=== PATIENT | female | born 1985 | race Caucasian/White ===

== ENCOUNTER 2017-05-15 17:07 | Emergency (ER) | payer SELFPAY ==
[~2017-05-15] VITALS: Ht 170.2 cm; Wt 115.0 kg
[2017-05-15 17:17] VITALS: BP 156/90; PULSE 113; RESP 18; TEMP 98.8; O2SAT 92
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
[2017-05-15] MEDS ORDERED: SODIUM CHLOR 0.9% 1000 ML INJ 1,000 ML IV SCH ×2 (18:34→20:13)
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
[2017-05-15 18:39] VITALS: BP 156/81; PULSE 113; RESP 16; O2SAT 100
[2017-05-15] MEDS ORDERED: LANTUS2P SQ (18:50)
[2017-05-15] MEDS ORDERED: GABA400C5 PO (18:50)
[2017-05-15] MEDS ORDERED: HUMALOG SQ (18:50)
--- NOTE | 2017-05-15 18:59 | RADRPT ---
EXAM DATE/TIME: 05/15/2017 18:15 [facility] COMPARISON: No previous studies available for comparison. INDICATIONS : Chest pain after fall. MEDICAL HISTORY : None. SURGICAL HISTORY : None. ENCOUNTER: Initial ACUITY: 1 day PAIN SCORE: 10/10 LOCATION: middle chest. FINDINGS: The examination is performed in expiration. There is crowding of the bronchopulmonary markings centr ally, characteristic of expiratory film. Both hemidiaphragms well delineated. No evidence of pneumo thorax. The heart is normal size. No evidence of mediastinal shift. CONCLUSION: No evidence of pneumothorax. Jericho Ojeda MD on May 15, 2017 at 18:55 Board Certified Radiologist. This report was verified electronically.
[2017-05-15 19:50] VITALS: BP 175/78; PULSE 89; RESP 17; O2SAT 99
[2017-05-15] MEDS ORDERED: GABAPENTIN 400 MG CAP PO STA (19:54)
[2017-05-15 20:06] LABS: ALT (GPT) 41 U/L (10-53); ANION GAP 11 MEQ/L (5-15); AST (GOT) 28 U/L (15-37); BICARBONATE 22.2 MEQ/L (21.0-32.0); BLOOD UREA NITROGEN 14 MG/DL (7-18); CHLORIDE 104 MEQ/L (98-107); GLOMERULAR FILTRATION RATE 62 ML/MIN (>89); POTASSIUM 3.7 MEQ/L (3.5-5.1); SODIUM (NA) 137 MEQ/L (136-145)
[2017-05-15 20:08] LABS: ALKALINE PHOSPHATASE 115 U/L (45-117); TOTAL BILIRUBIN ADULT 0.5 MG/DL (0.2-1.0)
[2017-05-15] MEDS ORDERED: INSULIN HUMAN REGULAR 1,000 UNITS/10 ML VIAL IV PUSH ONE (20:15)
[2017-05-15] MEDS ORDERED: ACETAMINOPHEN 325 MG TAB PO ONE (21:30)
[2017-05-15 21:52] VITALS: BP 156/74
== END 2017-05-15 22:03 ==
LOC: NEPC 17:07
DX: E10.65 Type 1 diabetes mellitus with hyperglycemia (principal); S20.219A Contusion of unspecified front wall of thorax, initial encounter; X58.XXXA Exposure to other specified factors, initial encounter; Y92.89 Other specified places as the place of occurrence of the external cause; R00.0 Tachycardia, unspecified; L98.8 Other specified disorders of the skin and subcutaneous tissue
CPT/HCPCS: 71111; 80053; 84703; 96361; 96374; 99284; J1815; J7030